=== PATIENT | male | born 1965 | race Caucasian/White ===

== ENCOUNTER → 2018-06-01 | Outpatient (CLI) | payer OTHER | END | disposition home or self-care (01) | LOC: CVU 12:01 | PROVIDERS: ATTEND Internal Medicine Cardiovascular Disease | DX: R93.1 Abnormal findings on diagnostic imaging of heart and coronary circulation (principal) | CPT/HCPCS: 78452; 93017; A9502; C8929; Q9957 ==

== ENCOUNTER 2018-06-22 10:47 | Day surgery (SDC) | payer OTHER ==
[~2018-06-22] VITALS: Ht 182.9 cm; Wt 92.3 kg
[2018-06-22] MEDS ORDERED: SODIUM CHLORIDE 0.9% 1,000 ML IV ONE (11:02)
[2018-06-22] MEDS ORDERED: ASPI-650 PO (11:07)
[2018-06-22] MEDS ORDERED: ACET325T14 PO (11:08)
[2018-06-22] MEDS ORDERED: IBUP-1623 PO (11:08)
[2018-06-22] MEDS ORDERED: PLEASE ENTER HEIGHT AND WEIGHT MC SCH (11:30)
[2018-06-22] MEDS ORDERED: ASPIRIN 325 MG TABLET EC PO ONE (11:30)
[2018-06-22 11:54] VITALS: BP 147/96
[2018-06-22] MEDS ORDERED: MIDAZOLAM 1 MG/ML, 2ML ONE ×2 (12:20→12:52)
[2018-06-22] MEDS ORDERED: HEPARIN 1,000 UNITS/ML, 10ML ONE (12:20)
[2018-06-22] MEDS ORDERED: DIPHENHYDRAMINE 50 MG/ML, 1ML ONE (12:20)
[2018-06-22] MEDS ORDERED: VERAPAMIL 2.5 MG/ML, 2ML ONE (12:20)
[2018-06-22] MEDS ORDERED: FENTANYL PF 100 MCG/2ML ONE (12:20)
[2018-06-22] MEDS ORDERED: SODIUM CHLORIDE 0.9% 1,000 ML IV SCH (13:15)
== END 2018-06-22 16:27 | disposition home or self-care (01) ==
LOC: CACL 10:47
PROVIDERS: ATTEND Internal Medicine Cardiovascular Disease
DX: R93.1 Abnormal findings on diagnostic imaging of heart and coronary circulation (principal); Z72.89 Other problems related to lifestyle; Z98.890 Other specified postprocedural states; Z90.49 Acquired absence of other specified parts of digestive tract; Z79.82 Long term (current) use of aspirin
CPT/HCPCS: 93460; 99156; 99157; C1769; C1894; J1200; J1644; J2250; J3010; Q9967

== ENCOUNTER 2019-04-26 18:58 | Emergency (ER) | payer OTHER ==
[~2019-04-26] VITALS: Ht 182.9 cm; Wt 98.5 kg
[~2019-04-26 18:58] MED LIST: ACET325T14 PO; ASPI-650 PO; IBUP-1623 PO
--- NOTE | 2019-04-26 20:44 | NUR ---
PT TO XR VIA ELIZABETH.
[2019-04-26 20:47] LABS: BASOPHILS # (AUTO) 0.03 x10^3/uL (0-0.1); BASOPHILS % (AUTO) 1 % (0-1); EOSINOPHILS # (AUTO) 0.13 x10^3/uL (0-0.4); EOSINOPHILS % (AUTO) 2 % (1-7); LYMPHOCYTES # (AUTO) 1.85 x10^3/uL (1-3.4); LYMPHOCYTES % (AUTO) 34 % (22-44); MD NO; MEAN CORPUSCULAR HEMOGLOBIN 31.3 pg (27.5-34.5); MEAN CORPUSCULAR HGB CONC 33.3 g/dL (33.2-36.2); MEAN CORPUSCULAR VOLUME 93.8 fL (81-97); MEAN PLATELET VOLUME 7.8 fL (7.4-10.4); MONOCYTES # (AUTO) 0.59 x10^3/uL (0.2-0.8); MONOCYTES % (AUTO) 11 % (2-9); NEUTROPHILS % (AUTO) 52 % (42-75); PLATELET COUNT 261 x10^3/uL (130-400); RED BLOOD COUNT 5.05 x10^6/uL (4.38-5.82); RED CELL DISTRIBUTION WIDTH 13.7 % (9.4-14.8)
[2019-04-26 20:57] LABS: ALANINE AMINOTRANSFERASE 49 U/L (12-78); ALBUMIN 3.6 g/dL (3.4-5.0); ANION GAP 5 mmol/L (5-15); CALCIUM 8.6 mg/dL (8.5-10.1); CHLORIDE 110 mmol/L (98-107); CREATININE 0.89 mg/dL (0.7-1.3)
[2019-04-26 21:01] LABS: ALKALINE PHOSPHATASE 44 U/L (45-117); BILIRUBIN,TOTAL 0.5 mg/dL (0.2-1.0); T4 (THYROXINE) 9.9 mcg/dL (4.5-12.1); TOTAL PROTEIN 7.2 g/dL (6.4-8.2); TROPONIN I < 0.015 ng/mL (0.000-0.045)
--- NOTE | 2019-04-26 21:36 | NUR ---
WATER PROVIDED TO PT. NO OTHER NEEDS AT THIS TIME. CHART UP FOR RECHECK.
--- NOTE | 2019-04-26 22:10 | NUR ---
D/C INSTRUTIONS RV'WD WITH PT BY GREGG FERRARI. PT AMBULATED OUT OF ED WITH WITHOUT DIFFICULTY.
[2019-04-26 22:11] VITALS: BP 132/81
== END 2019-04-26 22:13 | disposition home or self-care (01) ==
LOC: ED 22:00
DX: R06.00 Dyspnea, unspecified (principal); R53.83 Other fatigue; R93.89 Abnormal findings on diagnostic imaging of other specified body structures; Z87.891 Personal history of nicotine dependence
CPT/HCPCS: 36415; 71046; 80053; 83735; 83880; 84436; 84443; 84484; 85025; 93005; 99284